=== PATIENT | female | born 1930 | race Caucasian/White ===

== ENCOUNTER 2018-10-31 00:22 | Emergency (ER) | payer MEDICARE, OTHER ==
[~2018-10-31] VITALS: Ht 160 cm; Wt 55.8 kg
--- NOTE | 2018-10-31 00:30 | NUR ---
report of "coffee ground emesis", "red brown liquid", from [facility]. elevated blood pressure of 175/115 with heart rate of 116.
[2018-10-31] MEDS ORDERED: PANTOPRAZOLE SODIUM 40 MG TBEC (01:09)
[2018-10-31] MEDS ORDERED: MIRTAZAPINE 30 MG (01:09)
[2018-10-31] MEDS ORDERED: LISINOPRIL 10 MG TABS (01:09)
[2018-10-31] MEDS ORDERED: POTASSIUM CHLORIDE 20 MEQ (01:09)
[2018-10-31] MEDS ORDERED: PANTOPRAZOLE INJECTION 200 MG in NS (IVPB) 100 ML IV SCH (01:15)
[2018-10-31] MEDS ORDERED: PANTOPRAZOLE 40 MG (PROTONIX) VIAL IV ONE (01:15)
[2018-10-31] MEDS ORDERED: NS IV 1000 ML 500 ML IV ONE (01:15)
[2018-10-31] MEDS ORDERED: ONDANSETRON 4 MG/2 ML (SDV) Z0FRAN IVP ONE (01:15)
[2018-10-31] MEDS ORDERED: NS IV 500 ML 500 ML IV SCH (01:15)
--- NOTE | 2018-10-31 01:20 | ED General ---
General Chief Complaint: Abdominal/GI Problems Stated Complaint: GI BLEED Source of Information: Patient, EMS Exam Limitations: Other (dementia) History of Present Illness Date Seen by Provider: Oct 31, 2018 Time Seen by Provider: 00:40 Initial Comments 88-year-old female presenting with concern for GI bleed. [facility] She has a history of GI bleed. She has been complaining of epigastric pain for the last 2 days and nausea. Today she had some emesis at the jail and reportedly had some coffee-ground or reddish brown colored emesis. They were concerned that she was vomiting blood and has requested that she come to the emergency department. She was hypertensive for EMS he had a heart rate around 110. She did get Zofran which was controlling her nausea. She had no emesis in the emergency department. She does have a history of dementia. Allergies and Home Medications Allergies Coded Allergies: sulfamethoxazole (Verified Allergy, Unknown, 10/31/18) trimethoprim (Verified Allergy, Unknown, 10/31/18) Home Medications Acetaminophen 500 Mg Tablet, 1,000 MG PO Q6H, (Reported) Pantoprazole Sod 40 Mg Tab, BID, (Reported) Sucralfate 1 Gm/10 Ml Oral.susp, 1 GM PO ACHS Prescribed by: VALERIE GALVAN on 10/31/18 0254 Patient Home Medication List Home Medication List Reviewed: Yes Review of Systems Review of Systems Constitutional: see HPI, malaise EENTM: no symptoms reported Respiratory: cough (occasional) Cardiovascular: No chest pain, No palpitations Gastrointestinal: abdominal pain (epigastric); No constipation, No diarrhea; hematemesis (reported coffee-ground versus reddish-brown emesis at the jail), heartburn, nausea, vomiting Genitourinary: incontinence (she wears an adult diaper) Musculoskeletal: no symptoms reported Skin: no symptoms reported Psychiatric/Neurological: Other (chronic dementia) Hematologic/Lymphatic: Easy Bruising Past Rovwjly-Rmchls-Qtornc Hx Past Med/Social Hx: Reviewed Nursing Past Med/Soc Hx Patient Social History Recent Foreign Travel: No Contact w/Someone Who Travel: No Past Medical History Hypertension Gastroesophageal Reflux, Gastrointestinal Bleed Physical Exam Vital Signs Vital Signs - First Documented 10/31/18 10/31/18 00:30 04:55 Temp 98.5 Pulse 112 Resp 20 B/P (MAP) 159/81 (107) Pulse Ox 94 O2 Delivery Room Air Capillary Refill : Height, Weight, BMI Height: '" Weight: lbs. oz. kg; BMI Method: General Appearance: No Apparent Distress, WD/WN HEENT: Normal ENT Inspection, Pharynx Normal, Moist Mucous Membranes Neck: Non Tender, Supple Respiratory: Chest Non Tender, No Accessory Muscle Use, No Respiratory Distress , Decreased Breath Sounds Cardiovascular: Normal Peripheral Pulses, Systolic Murmur, Tachycardia Gastrointestinal: No Pulsatile Mass, Soft, Abnormal Bowel Sounds (hypoactive); No Distended, No Guarding, No Mass, No Rebound; Tenderness (epigastric) Rectal: Heme Negative Stool Extremity: Normal Capillary Refill, Normal Range of Motion, Non Tender Neurologic/Psychiatric: Alert, No Motor/Sensory Deficits, Normal Mood/Affect, joint supervisor II-XII Norm as Tested Skin: Normal Color, Warm/Dry Progress/Results/Core Measures Suspected Sepsis SIRS Temperature: Pulse: Respiratory Rate: Laboratory Tests 10/31/18 01:15: White Blood Count 14.1H Blood Pressure / Mean: Laboratory Tests 10/31/18 01:15: Creatinine 0.92, INR Comment 1.0, Platelet Count 260, Total Bilirubin 0.3 Results/Orders Lab Results Laboratory Tests Test 10/31/18 01:00 10/31/18 01:15 10/31/18 01:30 Range/Units Stool Occult Blood Immunoassay NEGATIVE NEGATIVE White Blood Count 14.1 H 4.3-11.0 10^3/uL Red Blood Count 4.59 4.35-5.85 10^6/uL Hemoglobin 13.3 11.5-16.0 G/DL Hematocrit 41 35-52 % Mean Corpuscular Volume 90 80-99 FL Mean Corpuscular Hemoglobin 29 25-34 PG Mean Corpuscular Hemoglobin Concent 32 32-36 G/DL Red Cell Distribution Width 12.7 10.0-14.5 % Platelet Count 260 130-400 10^3/uL Mean Platelet Volume 10.0 7.4-10.4 FL Neutrophils (%) (Auto) 90 H 42-75 % Lymphocytes (%) (Auto) 6 L 12-44 % Monocytes (%) (Auto) 3 0-12 % Eosinophils (%) (Auto) 0 0-10 % Basophils (%) (Auto) 0 0-10 % Neutrophils # (Auto) 12.7 H 1.8-7.8 X 10^3 Lymphocytes # (Auto) 0.8 L 1.0-4.0 X 10^3 Monocytes # (Auto) 0.5 0.0-1.0 X 10^3 Eosinophils # (Auto) 0.1 0.0-0.3 10^3/uL Basophils # (Auto) 0.0 0.0-0.1 10^3/uL Neutrophils % (Manual) 75 % Lymphocytes % (Manual) 8 % Monocytes % (Manual) 3 % Eosinophils % (Manual) 0 % Basophils % (Manual) 0 % Metamyelocytes % 1 % Myelocytes % 1 % Band Neutrophils 12 % Prothrombin Time 13.6 12.2-14.7 SEC INR Comment 1.0 0.8-1.4 Activated Partial Thromboplast Time 31 24-35 SEC Sodium Level 141 135-145 MMOL/L Potassium Level 3.7 3.6-5.0 MMOL/L Chloride Level 95 L 98-107 MMOL/L Carbon Dioxide Level 34 H 21-32 MMOL/L Anion Gap 12 5-14 MMOL/L Blood Urea Nitrogen 24 H 7-18 MG/DL Creatinine 0.92 0.60-1.30 MG/DL Estimat Glomerular Filtration Rate 57 BUN/Creatinine Ratio 26 Glucose Level 181 H 70-105 MG/DL Calcium Level 9.6 8.5-10.1 MG/DL Corrected Calcium 9.9 8.5-10.1 MG/DL Total Bilirubin 0.3 0.1-1.0 MG/DL Aspartate Amino Transf (AST/SGOT) 19 5-34 U/L Alanine Aminotransferase (ALT/SGPT) 18 0-55 U/L Alkaline Phosphatase 84 40-136 U/L Total Protein 6.7 6.4-8.2 GM/DL Albumin 3.6 3.2-4.5 GM/DL Lipase 102 H 8-78 U/L Urine Color YELLOW Urine Clarity CLEAR Urine pH 7 5-9 Urine Specific [place] 1.010 L 1.016-1.022 Urine Protein NEGATIVE NEGATIVE Urine Glucose (UA) NEGATIVE NEGATIVE Urine Ketones NEGATIVE NEGATIVE Urine Nitrite NEGATIVE NEGATIVE Urine Bilirubin NEGATIVE NEGATIVE Urine Urobilinogen 0.2 NORMAL MG/DL Urine Leukocyte Esterase NEGATIVE NEGATIVE Urine RBC (Auto) NEGATIVE NEGATIVE Urine RBC RARE /HPF Urine WBC 0-2 /HPF Urine Squamous Epithelial Cells 0-2 /HPF Urine Crystals NONE /LPF Urine Bacteria NEGATIVE /HPF Urine Casts NONE /LPF Urine Mucus NONE /LPF Urine Culture Indicated NO My Orders Orders - VALERIE GALVAN MD Comprehensive Metabolic Panel (10/31/18 00:36) Lipase (10/31/18 00:36) Ua Culture If Indicated (10/31/18 00:36) Saline Lock/Iv-Start (10/31/18 00:36) Cbc With Automated Diff (10/31/18 00:36) Protime With Inr (10/31/18 00:36) Partial Thromboplastin Time (10/31/18 00:36) Ekg Tracing (10/31/18 00:51) Continuous Ekg Monitoring (10/31/18 00:51) Fecal Occult Bedside (10/31/18 00:51) Occult Blood Stool (10/31/18 01:12) Ns Iv 500 Ml (Sodium Chloride 0.9%) (10/31/18 01:15) Ondansetron Injection (Zofran Injectio (10/31/18 01:15) Pantoprazole Injection (Protonix Injecti (10/31/18 01:15) Ns (Ivpb) (Sodium C... W/Pantoprazole In (10/31/18 01:15) Antacid Suspension (Mylanta Suspension (10/31/18 01:45) Manual Differential (10/31/18 01:15) Lidocaine 2% Viscous 15 Ml (Xylocaine Vi (10/31/18 03:30) Antacid Suspension (Mylanta Suspension (10/31/18 03:30) Ns Iv 1000 Ml (Sodium Chloride 0.9%) (10/31/18 01:15) Medications Given in ED Current Medications Medications Dose Ordered Sig/Angie Route Start Time Stop Time Status Last Admin Dose Admin Al Hydrox/Mg Hydrox/Simethicone 30 ml ONCE ONCE PO 10/31/18 01:45 10/31/18 01:46 DC 10/31/18 01:56 30 ML Al Hydrox/Mg Hydrox/Simethicone 30 ml ONCE ONCE PO 10/31/18 03:30 10/31/18 03:31 DC 10/31/18 03:31 30 ML Lidocaine HCl 15 ml ONCE ONCE PO 10/31/18 03:30 10/31/18 03:31 DC 10/31/18 03:31 15 ML Ondansetron HCl 4 mg ONCE ONCE IVP 10/31/18 01:15 10/31/18 01:16 DC 10/31/18 01:47 4 MG Pantoprazole 40 mg ONCE ONCE IV 10/31/18 01:15 10/31/18 01:16 DC 10/31/18 01:48 40 MG Vital Signs/I&O 10/31/18 10/31/18 00:30 04:55 Temp 98.5 98.4 Pulse 112 109 Resp 20 24 B/P (MAP) 159/81 (107) 153/82 (105) Pulse Ox 94 96 O2 Delivery Room Air Capillary Refill : Progress Note #1: Progress Note We'll check basic labs and electrocardiogram. Given a 500 mL normal saline bolus as well as Zofran for nausea. Will give Protonix for gastritis. Obtain stools specimen for occult stool test to check for blood in her stool. Progress Note #2: Progress Note Occult stool was negative. Her CBC showed stable hemoglobin without evidence of anemia for acute GI bleed. Her chemistry was also stable. She did have a mild elevation of her white blood cell count of 14,000. Her other studies all appeared stable without acute significant abnormalities. She did continue to complain of some epigastric abdominal pain and this was improved after Maalox. However shortly thereafter she was complaining again of epigastric pain. She was also given a GI cocktail and the IV Protonix. Her epigastric pain again intermittently was improved but never completely resolved. However since she was hemodynamically stable and there was no evidence of an acute GI bleed was felt that she could be more aggressively treated for her gastritis with adding Carafate to the regimen that [facility] and have her follow-up as an outpatient. If she has further evidence of bleeding or changes then she can be reevaluated sooner. ECG Initial ECG Impression Date: Oct 31, 2018 Initial ECG Impression Time: 00:44 Initial ECG Rate: 112 Initial ECG Rhythm: S.Tach Initial ECG Intervals: Normal Initial ECG Comparisson: No Previous ECG Available Comment Sinus tachycardia with ST elevation or acute ischemic changes. No prior tracing for comparison was immediately available Departure Impression Primary Impression: Reflux gastritis Additional Impression: Nausea and vomiting in adult Disposition: 01 HOME, SELF-CARE Condition: Stable Departure-Patient Inst. Decision time for Depature: 02:52 Referrals: NO,LOCAL PHYSICIAN (PCP/Family) Primary Care Physician Patient Instructions: Acid Reflux (Gastroesophageal Reflux Disease), Adult (DC) , Gastritis (DC), Nausea and Vomiting, Adult (DC) Add. Discharge Instructions: Add Carafate to your medicines to help with the irritation of your stomach lining. Resume all your other medicines as you were already taking at the jail. Check back with your regular provider and they may want you to see a GI doctor if you have continued problems or other concerns. All discharge instructions reviewed with patient and/or family. Voiced understanding. Scripts Sucralfate (Carafate) 1 Gm/10 Ml Oral.susp 1 GM PO ACHS for gastritis for 15 Days, ML 0 Refills Prov: VALERIE GALVAN MD 10/31/18 VALERIE GALVAN MD Oct 31, 2018 01:20
[2018-10-31 01:30] LABS: HEMATOCRIT 41 % (35-52); HEMOGLOBIN 13.3 G/DL (11.5-16.0); MEAN CORPUSCULAR HEMOGLOBIN 29 PG (25-34); MEAN CORPUSCULAR HGB CONC 32 G/DL (32-36); MEAN CORPUSCULAR VOLUME 90 FL (80-99); PLATELET COUNT 260 10^3/uL (130-400); RED CELL DISTRIBUTION WIDTH 12.7 % (10.0-14.5); WHITE BLOOD COUNT 14.1 10^3/uL (4.3-11.0)
[2018-10-31 01:31] LABS: BASOPHILS % (AUTO) 0 % (0-10); EOSINOPHILS # (AUTO) 0.1 10^3/uL (0.0-0.3); EOSINOPHILS % (AUTO) 0 % (0-10); LYMPHOCYTES # (AUTO) 0.8 X 10^3 (1.0-4.0); LYMPHOCYTES % (AUTO) 6 % (12-44); MONOCYTES # (AUTO) 0.5 X 10^3 (0.0-1.0); MONOCYTES % (AUTO) 3 % (0-12); NEUTROPHILS # (AUTO) 12.7 X 10^3 (1.8-7.8); NEUTROPHILS % (AUTO) 90 % (42-75)
[2018-10-31] MEDS ORDERED: ANTACID SUSP 30 ML UDC (MYLANTA) PO ONE ×2 (01:45→03:30)
[2018-10-31 01:50] LABS: BACTERIA,URINE NEGATIVE /HPF; BILIRUBIN,URINE NEGATIVE (NEGATIVE); CLARITY,URINE CLEAR; COLOR,URINE YELLOW; GLUCOSE, URINE (UA) NEGATIVE (NEGATIVE); KETONES,URINE NEGATIVE (NEGATIVE); LEUKOCYTE ESTERASE ,URINE NEGATIVE (NEGATIVE); NITRITE,URINE NEGATIVE (NEGATIVE); PH,URINE 7 (5-9); PROTEIN,URINE NEGATIVE (NEGATIVE); RBC,URINE RARE /HPF; SQUAMOUS EPITHELIAL CELL,UR 0-2 /HPF; UROBILINOGEN,URINE 0.2 MG/DL (NORMAL); WBC,URINE 0-2 /HPF
[2018-10-31 01:52] LABS: BAND NEUTROPHILS 12 %; BASOPHILS % (MANUAL) 0 %; EOSINOPHILS % (MANUAL) 0 %; LYMPHOCYTES % (MANUAL) 8 %; METAMYELOCYTES % 1 %; MONOCYTES % (MANUAL) 3 %; MYELOCYTES % 1 %; NEUTROPHILS % (MANUAL) 75 %
[2018-10-31 01:53] LABS: POTASSIUM 3.7 MMOL/L (3.6-5.0)
[2018-10-31 01:54] LABS: ALBUMIN 3.6 GM/DL (3.2-4.5); BILIRUBIN,TOTAL 0.3 MG/DL (0.1-1.0); CALCIUM 9.6 MG/DL (8.5-10.1); CREATININE SERUM 0.92 MG/DL (0.60-1.30); TOTAL PROTEIN 6.7 GM/DL (6.4-8.2)
[2018-10-31 02:11] LABS: PROTHROMBIN TIME PATIENT 13.6 SEC (12.2-14.7)
--- NOTE | 2018-10-31 02:48 | NUR ---
Linda RN at [facility] notified of patient discharge at this time and patient need for transport back to the [facility]. Linda states she will send a [facility] to transport patient back.
[2018-10-31] MEDS ORDERED: SUCR1ORA5 PO (02:54)
[2018-10-31] MEDS ORDERED: [UNRECOGNIZED DRUG - CODE] (03:23)
[2018-10-31] MEDS ORDERED: KCL20TCR (03:23)
[2018-10-31] MEDS ORDERED: ACET-2267 PO (03:23)
[2018-10-31] MEDS ORDERED: CALC-84 (03:23)
[2018-10-31] MEDS ORDERED: CYAN500T2 (03:23)
[2018-10-31] MEDS ORDERED: FERR-65 (03:23)
[2018-10-31] MEDS ORDERED: ONDA4TAB11 (03:23)
[2018-10-31] MEDS ORDERED: GFCD10B (03:23)
[2018-10-31] MEDS ORDERED: POLY17PO23 (03:23)
[2018-10-31] MEDS ORDERED: FOLI0.4T2 (03:23)
[2018-10-31] MEDS ORDERED: PANT40TA2 (03:23)
[2018-10-31] MEDS ORDERED: LIDOCAINE 2% VISCOUS 15 ML UDC PO ONE (03:30)
--- NOTE | 2018-10-31 04:05 | NUR ---
Called [facility] again to come and pick and shovel man their patient and was told by Linda FERGUSON that production administrative assistant JOHN was coming to get patient and should be here shortly.
[2018-10-31 04:55] VITALS: BP 153/82
--- NOTE | 2018-10-31 04:55 | NUR ---
[facility] DON arrived to chicken picker patient. discharge instructions and prescription given to Yamilex ELIZABETH.
== END 2018-10-31 04:55 | disposition home or self-care (01) ==
LOC: ER FS 00:26
DX: K21.9 Gastro-esophageal reflux disease without esophagitis (principal); F03.90 Unspecified dementia, unspecified severity, without behavioral disturbance, psychotic disturbance, mood disturbance, and anxiety; I10 Essential (primary) hypertension; Z88.8 Allergy status to other drugs, medicaments and biological substances; Z88.2 Allergy status to sulfonamides
CPT/HCPCS: 36415; 80053; 81000; 82274; 83690; 85007; 85027; 85610; 85730; 93005; 96361; 96365; 96366